=== PATIENT | female | born 1985 | race Caucasian/White ===

== ENCOUNTER 2017-12-23 08:19 | Inpatient (IN) | payer BC ==
[~2017-12-23] VITALS: Ht 170.2 cm; Wt 86.2 kg
--- NOTE | ~2017-12-23 | DS ---
PATIENT:WALDEMAR MARIN :85 MEDICAL RECORD: [id number] DISCHARGE SUMMARY ADMISSION DATE: 12/23/17 DISCHARGE DATE: 12/25/17 DATE OF ADMISSION: 12/23/2017 HOSPITAL COURSE: A 32-year-old G2, P0 at 37 weeks and 1 day, admitted in active labor with spontaneous rupture of membranes. The patient was noted to be O positive, group B strep negative, and rubella unknown. PAST MEDICAL HISTORY: The patient had significant for depression as well as urge incontinence. PAST SURGICAL HISTORY: The patient reported surgical history significant for I believe diagnostic laparoscopy. ALLERGIES: The patient reported no allergies. MEDICATIONS: Included vitamins. FAMILY HISTORY: The patient reported a family history significant for a parent with diabetes and a sibling with hypertension. SOCIAL HISTORY: The patient reported social history negative times 3. PHYSICAL EXAMINATION: VITAL SIGNS: On initial evaluation, vital signs were found to be stable. The patient was afebrile and normotensive. LUNGS: Clear to auscultation. CARDIOVASCULAR: Regular rate and rhythm. PELVIC: Uterus was appropriately sized and appropriately tender. The patient noted to be grossly ruptured upon initial assessment. EXTREMITIES: Lower extremities were free of erythema, swelling or Homans sign. LABORATORY DATA: Category 1 tracing at admission. Admit hemoglobin found to be 13.3 with a platelet count of 120. ASSESSMENT: 1. At that time, term intrauterine at 37 weeks. 2. Labor. 3. History of urge incontinence. 4. History of depression. PLAN: At that time for expectant management of labor, category 1 tracing. Pitocin augmentation as needed. The patient progressed to the second stage of labor, which she had a normal spontaneous vaginal delivery with second degree perineal laceration. Delivery note is as on the chart. The patient did well overnight on day #0, tolerating p.o. pain meds and general diet, ambulating freely and voiding freely. On the morning of day #1, the patient continued to do well. Vital signs are stable. The patient was afebrile and normotensive. The uterus was infraumbilical and nontender with minimal lochia. The patient was tolerating general diet and p.o. pain meds. The patient was discharged home on day #1 with instructions to follow up in 4 weeks. The patient was screened for depression and had no significant. DISCHARGE SUMMARY REPORT [id number] WALDEMAR MARIN TRANSINT:[id number] Voice Confirmation ID: [id number] DOCUMENT ID: [id number] ROSA MARIA JORDAN MD at 1304 CC: [id number] DICTATION DATE: 01/31/18633 SLAG WHEELER: 01/31/18 1621 DIS IN 12/25/17 [facility] [address] [id number]
[2017-12-23 10:07] LABS: APPEARANCE CLEAR (CLEAR); BILIRUBIN NEGATIVE (NEGATIVE); COLOR YELLOW (YELLOW); GLUCOSE 500 mg/dL (NEGATIVE); KETONE NEGATIVE (NEGATIVE); NITRITE NEGATIVE (NEGATIVE); PH 5.5 (5.0-6.0); PROTEIN NEGATIVE (NEGATIVE); SPECIFIC GRAVITY 1.025 (1.005-1.020); UROBILINOGEN NORMAL (NORMAL)
[2017-12-23] MEDS ORDERED: PRENATAL COMPLE1 TAB (12:20)
[2017-12-23 12:21] VITALS: BP 125/65; Ht 170.2 cm; Wt 86.2 kg
[2017-12-23 12:50] LABS: HEMATOCRIT 38.5 % (36.0-48.0); HEMOGLOBIN 13.3 g/dL (12-16); MCH 30.6 pg (26.0-34.0); MCHC 34.5 g/dL (31.0-37.0); MCV 88.5 fL (80.0-100.0); MEAN PLATELET VOLUME 11.2 fL (7.4-10.4); RBC 4.35 10x6/uL (4.00-5.40); RDW 14.7 % (11.5-14.5); WBC 8.4 10x3/uL (4.8-10.8)
[2017-12-23 13:10] LABS: HIV 1 & 2- RAPID SCREEN NEGATIVE (NEGATIVE)
[2017-12-23 16:03] LABS: UDS - AMPHET NEGATIVE QUAL (NEGATIVE); UDS - BARB NEGATIVE QUAL (NEGATIVE); UDS - BENZO NEGATIVE QUAL (NEGATIVE); UDS - COCAINE NEGATIVE QUAL (NEGATIVE); UDS - OPIATE NEGATIVE QUAL (NEGATIVE); UDS - PCP NEGATIVE QUAL (NEGATIVE); UDS - THC NEGATIVE QUAL (NEGATIVE)
[2017-12-24 02:30] VITALS: BP 126/82
[2017-12-24 04:45] LABS: BASOPHILS 0.1 % (0-2); EOSINOPHILS 0.2 % (0-7); HEMATOCRIT 33.8 % (36.0-48.0); HEMOGLOBIN 11.8 g/dL (12-16); IMMATURE GRANULOCYTES 0.4 % (0-5); LYMPHOCYTES 8.8 % (15-50); MCH 31.1 pg (26.0-34.0); MCHC 34.9 g/dL (31.0-37.0); MCV 88.9 fL (80.0-100.0); MONOCYTES 9.7 % (2-11); NEUTROPHILS 80.8 % (40-80); PLATELET COUNT 112 10x3/uL (130-400)
[2017-12-24 04:53] LABS: WBC 13.8 10x3/uL (4.8-10.8)
[2017-12-24 07:29] LABS: RAPID PLASMA REAGIN Non Reactive (Non Reactive)
[2017-12-24 08:08] VITALS: BP 121/73
[2017-12-24 13:18] LABS: HEPATITIS C ANTIBODY <0.1 (0.0-0.9)
[2017-12-24 16:30] VITALS: BP 138/78
[2017-12-24 19:11] LABS: RUBELLA IGG 0.96 index (Immune >0.99)
[2017-12-25 08:00] VITALS: BP 133/68
[2017-12-25] MEDS ORDERED: HYDROCODON-ACE1 EAC7 PO (15:12)
[2017-12-25] MEDS ORDERED: IBUPROFEN600 MG PO (15:12)
[2017-12-25 15:23] LABS: HGB SOLUBILITY (SICKLE SCREEN) Negative (Negative)
== END 2017-12-25 16:10 | disposition home or self-care (01) | DRG 775 ==
LOC: D.LDO 08:19 → D.LD 11:43
PROVIDERS: Obstetrics & Gynecology
PROC: 10E0XZZ Delivery of Products of Conception, External Approach (ICD-10-PCS; principal; 2017-12-23)
PROC: 0KQM0ZZ Repair Perineum Muscle, Open Approach (ICD-10-PCS; 2017-12-23)
DX: O99.344 Other mental disorders complicating childbirth (principal); F32.9 Major depressive disorder, single episode, unspecified; Z3A.37 37 weeks gestation of pregnancy; Z37.0 Single live birth; O70.1 Second degree perineal laceration during delivery

== ENCOUNTER → 2018-12-21 08:48 | Outpatient (CLI) | payer BC ==
[2017-12-23 12:21] VITALS: BMI 29.8
[~2018-12-21 08:48] MED LIST: HYDROCODON-ACE1 EAC7 PO; IBUPROFEN600 MG PO; PRENATAL COMPLE1 TAB
== END | disposition home or self-care (01) ==
LOC: D.US 08:48
PROVIDERS: ATTEND Otolaryngology
DX: E04.2 Nontoxic multinodular goiter (principal)